=== PATIENT | female | born 1940 | race Caucasian/White ===

== ENCOUNTER 2023-12-03 19:01 | Emergency (ER) | payer OTHER, SELFPAY ==
[2023-12-03] VITALS (18 sets, daily range): BP systolic 153–198; BP diastolic 83–143; BMI 29.2
--- NOTE | 2023-12-03 21:34 | ED.GENMED ---
History of Present Illness
<KEVIN Dee - Last Filed: 12/03/23 23:37>
General
Chief Complaint: Musculo-Skeletal Complaint
Source: patient
Exam Limitations: none
Time Seen by Provider: 12/03/23 19:19
Nursing documentation reviewed up to this point in time: agreed with
History of Present Illness
History of Present Illness:
Patient is a 83-year-old female who presents to the ER complaint of left shoulder pain. She reports she tripped over her dog in the kitchen around 6:30 PM and landed on her left shoulder. She denies hitting her head she is right-hand dominant.
Review of Systems
<KEVIN Dee - Last Filed: 12/03/23 23:37>
Review of Systems
Allergies reviewed?: Yes
All Other Systems: ROS reviewed and negative except as documented in HPI and ROS
Constitutional: Reports no symptoms; Denies fever, fatigue or chills
Musculoskeletal: Reports other (left shoulder /upper arm pain )
Skin: Reports no symptoms
Neurological: Reports no symptoms and other (denies hitting head )
Psychiatric: Reports no symptoms
Phy Exam
<KEVIN eDe - Last Filed: 12/03/23 23:37>
General Physical Exam
General Presentation: no apparent distress
General age: appears stated age
General Skin: warm and dry
General Habitus: normal
General Mental: alert
General Hydration: appears well hydrated
Neurological Exam
Neurological Exam: alert and oriented x3
Musculoskeletal Exam
Musculoskeletal Exam: other (No obvious head injury on exam obvious deformity tenderness to the left shoulder area with strong distal pulses, normal distal sensation)
Skin Exam
Skin Exam: normal color and warm/dry
Psychiatric Exam
Psychiatric Exam: normal mood/affect
Course
<KEVIN Dee - Last Filed: 12/03/23 23:37>
Orders/Labs/Results
Orders:
Orders
12/03/23 19:08
Humerus, Left 2 Views [CR Humerus - Left Min 2 Views*] Urgent
Comment:
Reason For Exam: FALL
12/03/23 21:08
IV Insert/Care/Rem.- Treatment PRN
Morphine Sulfate 4 mg IV NOW STA
12/03/23 21:40
Shoulder, Left, Trauma CR [CR Shoulder, Trauma - Left] Urgent
Comment:
Reason For Exam: trauma
12/03/23 21:53
Propofol [Diprivan] 20 ml .ROUTE .STK-MED
12/03/23 22:22
CR Shoulder - Left 1 View Urgent
Reason For Exam: reduction
12/03/23 22:33
CR Shoulder - Left Min 2 View* Urgent
Comment:
Reason For Exam: second attempt at reduction
12/03/23 22:39
Propofol [Diprivan] 140 mg IV NOW STA
Vital Signs
Initial and Last Documented VS:
Initial Vital Signs
Temp Pulse Resp BP Pulse Ox
98 F 70 24 198/116 98
12/03/23 19:03 12/03/23 19:03 12/03/23 19:03 12/03/23 19:03 12/03/23 19:03
Last Documented Vital Signs
Temp Pulse Resp BP Pulse Ox
97.6 F 101 18 186/83 95
12/03/23 23:06 12/03/23 23:06 12/03/23 23:06 12/03/23 23:06 12/03/23 23:06
Brianlt;Cornel Boyce DO - Last Filed: 12/03/23 23:00>
Orders/Labs/Results
Orders:
Orders
12/03/23 19:08
Humerus, Left 2 Views [CR Humerus - Left Min 2 Views*] Urgent
Comment:
Reason For Exam: FALL
12/03/23 21:08
IV Insert/Care/Rem.- Treatment PRN
Morphine Sulfate 4 mg IV NOW STA
12/03/23 21:40
Shoulder, Left, Trauma CR [CR Shoulder, Trauma - Left] Urgent
Comment:
Reason For Exam: trauma
12/03/23 21:53
Propofol [Diprivan] 20 ml .ROUTE .STK-MED
12/03/23 22:22
CR Shoulder - Left 1 View Urgent
Reason For Exam: reduction
12/03/23 22:33
CR Shoulder - Left Min 2 View* Urgent
Comment:
Reason For Exam: second attempt at reduction
12/03/23 22:39
Propofol [Diprivan] 140 mg IV NOW STA
Vital Signs
Initial and Last Documented VS:
Initial Vital Signs
Temp Pulse Resp BP Pulse Ox
98 F 70 24 198/116 98
12/03/23 19:03 12/03/23 19:03 12/03/23 19:03 12/03/23 19:03 12/03/23 19:03
Last Documented Vital Signs
Temp Pulse Resp BP Pulse Ox
97.6 F 101 18 186/83 95
12/03/23 23:06 12/03/23 23:06 12/03/23 23:06 12/03/23 23:06 12/03/23 23:06
Procedures
<KEVIN Dee - Last Filed: 12/03/23 23:37>
Moderate Sedation
ASA Risk Score: Class II
Chart and allergies reviewed: Yes
Consent for anesthesia obtained: Yes
Time out completed (validating right patient & procedure): Yes
Moderate Sedation Start Time(when first medication is given): 22:19
History of difficult intubation: No
Airway free of obstruction: Yes
Patient has a gag reflex: Yes
Patient is able to open mouth: Yes
Patient has no dentures: Yes
Patient has no loose teeth: Yes
Medication administered by Provider during Moderate Sedation: IV Propofol (mg)
Total dose administered: 140
Time drug administered: 22:19
Moderate Sedation Procedure End Time: 22:36
Comment: Propofol 50 mg at 2219; 20 mg at 2221; 50 mg at 2229' 20 mg at 2232
Joint/Fracture Reduction
Left Shoulder:
Indication for procedure:: Anterior dislocation
Procedure completed by: DR Terrell
Consent form signed: Yes
If no, reason: Emergency procedure
Joint reduced: with anesthesia sedation
Injury was: closed
Further treatement: needs re-check only
Post reduction exam: stable
Capillary Refill: normal
Normal distal neurovascular exam?: Yes
Peripheral Pulses: radial (left): 4+ and radial (right): 4+
<KEVIN Dee - Last Filed: 12/03/23 23:37>
MDM/Problems Addressed
Differential Diagnosis Includes:
Not limited to fracture, dislocation
MDM/Problems Addressed:
Patient with anterior dislocation status post fall of left humerus. Patient presents other varma awake alert no acute distress denies any head injury not on blood thinners no obvious tender on exam patient was given moderate sedation and shoulder
reduction performed by ED physician. Will DC with sling and outpatient Ortho follow-up.
Patient's blood pressure is elevated she does have a history of elevated blood pressure and has not taken her medicine the past 2 days because she was vomiting. She did not take it today but feels want to take it when she goes home. Discharge
blood pressure 171/81.
Chronic conditions affecting care:
Hypertension patient is hypertensive here
<KEVIN Dee - Last Filed: 12/03/23 23:37>
*Critical Care Note
Total Time (30-74mins, 75-104mins- exclusive of procedures): Not Applicable
ED Attending Note
<KEVIN Dee - Last Filed: 12/03/23 23:37>
-
Portions of this chart may have been created with voice recognition software.� Occasional wrong word or��sound alike� substitutions may have occurred due to the inherent limitations of voice recognition software.
<Cornel Boyce DO - Last Filed: 12/03/23 23:00>
ED Attending Note
Patient seen and examined by attending physician: Yes
ED Attending Note:
Pleasant 83-year-old female presents with left shoulder anterior dislocation. Confirmed on x-ray. Patient seen in conjunction with the nurse practitioner. I have reviewed and agree with her history and treatment plan. I was present for this
sedation and reduction of the left anterior shoulder dislocation. I personally performed the reduction and sedation. First attempt was unsuccessful. Patient received more propofol. Second attempt was successful. Patient tolerated procedure well
with no immediate adverse effects. No episodes of desaturation.
Discharge Plan
Departure
Patient Disposition: Home (Routine Discharge)
Date of Disposition: 12/03/23
Time of Disposition: 23:35
Patient with high blood pressure during this ER visit?: Yes
Discharge Problem:
left shoulder dislocation
Instructions: Shoulder Dislocation (DC), MODERATE SEDATION ADULT, BLOOD PRESSURE
Referrals:
Cristina Gates DO [Active] -
Daphne Heredia PA-C [Family Provider] -
Activity Restrictions/Additional Instructions:
As discussed wear sling for support Until you are evaluated by orthopedics. Call tomorrow to make an appointment as soon as possible return if any worsening of symptoms. you may ice over affected area for the next 24 hours 20 minutes at a time
several times a day.
Your blood pressure was elevated here in the ER had this rechecked by your family doctor and be sure to take your blood pressure medication tonight
Interventions
Interventions:
*Risk Screen - Suicide Last Done: 12/03/23 19:03
*General Assessment Last Done: 12/03/23 19:42
*Neglect/Abuse Screening Last Done: 12/03/23 19:03
ED- Fall Risk Assessment Last Done: 12/03/23 19:42
*ED COVID-19 Vaccine History Last Done: 12/03/23 19:42
ED-Musculoskeletal Assessment Last Done: 12/03/23 19:43
Discharge Date and Time
Print Language: [id number]
[2023-12-03] MEDS: MORPHINE SULFATE 4 MG IV (21:39)
[2023-12-03] MEDS: DIPRIVAN 140 MG IV (22:40)
== END 2023-12-03 23:45 | disposition home or self-care (01) ==
LOC: EMR 19:01
PROVIDERS: EMERGENCY PHYSICIAN Student in an Organized Health Care Education/Training Program; FAMILY PHYSICIAN Physician Assistant Medical
DX: S43.015A Anterior dislocation of left humerus, initial encounter (principal); W01.0XXA Fall on same level from slipping, tripping and stumbling without subsequent striking against object, initial encounter; I10 Essential (primary) hypertension
CPT/HCPCS: 99285; 23650; 96374; 96375; 99152; 73020; 73030; 73060